=== PATIENT | female | born 1960 | race Caucasian/White ===

== ENCOUNTER 2018-09-02 06:17 | Day surgery (SDC) | payer MEDICARE, OTHER ==
[2018-08-30 15:25] VITALS: BMI 46.2
--- NOTE | 2018-09-02 15:05 | OP ---
DATE OF PROCEDURE: 09/02/2018 PROCEDURE: Colonoscopy with polypectomy. INDICATION FOR PROCEDURE: Family history of malignant neoplasm of the colon. DESCRIPTION OF PROCEDURE: After the risks and benefits of the procedure were explained to the patient including risks of bleeding, infection, perforation, reactions with anesthesia, aspiration, and/or pain, informed consent was obtained. The patient was then taken to the endoscopy suite, where a deep sedation was administered via propofol and anesthesia support. Once adequate sedation was achieved, an external rectal examination was performed followed by introduction of the standard colonoscope into the rectum and advanced to the cecum without difficulty. The quality of the prep was good with adequate visualization of the colonic mucosa. The patient tolerated the procedure well with no immediate perioperative complications. Upon conclusion of the procedure, all equipment was removed and the patient was taken to Day Stay in satisfactory condition. COLONOSCOPY FINDINGS: Digital rectal exam, medium size external hemorrhoids were seen on external examination. COLON FINDINGS: Normal-appearing mucosa was seen at the appendiceal orifice, ileocecal valve, and within in the cecum itself. Normal-appearing mucosa was also seen in the ascending colon. A 4 to 5 mm polyp was seen in the midtransverse colon and completely removed with snare cautery polypectomy. It was retrieved and placed in a specimen jar for evaluation. Another 3 to 4 mm polyp was seen in the descending colon and completely removed with snare cautery polypectomy. It was retrieved and placed in a specimen jar for evaluation. A single diverticulum was seen in the distal descending colon. Normal-appearing mucosa was seen in the sigmoid colon. However, 4 polyps measuring to 6 mm were seen in the rectum and completely removed with a combination of snare cautery polypectomy and cold snare polypectomy (the smaller 2 polyps measuring 3 mm in size were removed with cold snare). All these polyps were removed completely and placed in a specimen jar for evaluation. On retroflexion, small internal hemorrhoids were noted. IMPRESSION: 1. A 4 to 5 mm transverse colon polyp, status post snare cautery polypectomy. 2. A 3 to 4 mm descending colon polyp, status post snare cautery polypectomy. 3. Four polyps measuring to 6 mm in the rectum, status post combination of snare cautery polypectomy and cold snare polypectomy. 4. Both internal and external hemorrhoids. RECOMMENDATIONS: 1. We will follow up on the biopsy results with repeat colonoscopy, interval depending on the results. However, given her family history of colon cancer and her father with colon polyps, I would repeat in no greater than 5 years. 2. Recommend high fiber diet given the presence of hemorrhoids and diverticulosis as well as history of chronic constipation. 3. Follow up in the GI Clinic as needed. Job ID: [id number]
== END 2018-09-02 09:50 | disposition home or self-care (01) ==
LOC: SDC 06:17
PROVIDERS: ATTEND Internal Medicine
PROC: 0DBM8ZX Excision of Descending Colon, Via Natural or Artificial Opening Endoscopic, Diagnostic (ICD-10-PCS; principal; 2018-09-02)
PROC: 0DBL8ZX Excision of Transverse Colon, Via Natural or Artificial Opening Endoscopic, Diagnostic (ICD-10-PCS; 2018-09-02)
PROC: 0DBP8ZX Excision of Rectum, Via Natural or Artificial Opening Endoscopic, Diagnostic (ICD-10-PCS; 2018-09-02)
DX: Z12.11 Encounter for screening for malignant neoplasm of colon (principal); K63.5 Polyp of colon; K62.1 Rectal polyp; K57.30 Diverticulosis of large intestine without perforation or abscess without bleeding; K64.4 Residual hemorrhoidal skin tags; K64.8 Other hemorrhoids; K59.09 Other constipation; N18.9 Chronic kidney disease, unspecified; E66.01 Morbid (severe) obesity due to excess calories; Z68.42 Body mass index [BMI] 45.0-49.9, adult; Z80.0 Family history of malignant neoplasm of digestive organs; Z83.71 Family history of colonic polyps; Z87.891 Personal history of nicotine dependence; Z79.82 Long term (current) use of aspirin; Z79.899 Other long term (current) drug therapy; Z99.2 Dependence on renal dialysis
CPT/HCPCS: 88305

== ENCOUNTER 2020-02-28 11:47 | Inpatient (IN) | payer MEDICARE, OTHER ==
[2020-02-28 13:06] VITALS: BMI 40.6
[2020-02-28] MEDS ORDERED: Senokot S 8.6-50 MG TAB PO PRN (13:10)
[2020-02-28 13:57] LABS: Anion Gap 14 mmol/L (10-20); BUN (Urea Nitrogen) 38 mg/dL (9.8-20.1); CRP (Inflammatory) 11.22 mg/dL (= or < 0.5); Calc. Creatinine Clearance 16 mL/min (70-130); Calcium 8.8 mg/dL (7.8-10.44); Carbon Dioxide 30 mmol/L (22-29); Chloride 97 mmol/L (98-107); Estimated GFR-MDRD 6; Glucose 109 mg/dL (70-105); Potassium 4.9 mmol/L (3.5-5.1); Sodium 136 mmol/L (136-145)
[2020-02-28] MEDS ORDERED: Vancomycin HCl 1.5 GM in Sodium Chloride 0.9% 250 ML 300 ML IVPB SCH (17:15)
[2020-02-28] MEDS ORDERED: Vancomycin 1.5 GRAM/300 ML BAG 1.5 GM in Premix Bag 1 BAG IVPB SCH ×3 (17:30→20:00)
[2020-02-28] MEDS: cefTRIAXone\\ROCEPHIN 1 GM in Sodium Chloride 0.9% 100 ML IVPB SCH (18:23)
--- NOTE | 2020-02-28 18:23 | HP ---
CHIEF COMPLAINT: Fever and diarrhea. HISTORY OF PRESENT ILLNESS: The patient is a 59-year-old female with end-stage renal disease, on dialysis, who comes in to the hospital from dialysis for fever and diarrhea. 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 She also had some nausea, no vomiting, however, she felt that she could not keep anything orally. She states that since and Sunday, she has not been really eating or drinking very much. She went to dialysis today, and she had a fever of 101, so she was brought into the hospital. She stated that she woke up this morning, felt really hot, so she took a very cold shower, hopefully, to help her feel better. She has had diarrhea about 2 or 3 times. PAST MEDICAL HISTORY: She has chronic kidney disease and she has hypertension. 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 PAST SURGICAL HISTORY: She has had multiple surgeries to remove stones from the kidney, rotator cuff repair, fistula replacement, and tubal ligation. ALLERGIES: NONE. MEDICATIONS: As of the followin. Aspirin 81 mg daily. 2. Sensipar 25 mg daily. 3. Colace 100 mg twice a day. 4. Metoprolol 25 mg daily. 5. Zocor 40 mg at bedtime. REVIEW OF SYSTEMS: All negative except for the ones mentioned above in HPI. FAMILY HISTORY: Father had esophageal cancer. Mother had heart disease. SOCIAL HISTORY: Denies any alcohol use, drug use, or smoking history. She is a full code. Lives with a roommate. PHYSICAL EXAMINATION: VITAL SIGNS: As of the following; temperature of 98.4, pulse 64, respirations 16, saturation is 100% on 2 L, and blood pressure 162/72. GENERAL: She is awake, alert, and oriented x3. Does not appear in distress. CV: S1, S2 present. No murmurs, rubs, or gallops. LUNGS: Clear to auscultation. No rhonchi or wheezes noted. ABDOMEN: Soft and nontender. Bowel sounds are present x2. EXTREMITIES: No edema. Pedal pulses are present x2. NEUROVASCULAR: Has no focal deficits noted. SKIN: No cuts, lesions, or bruises noted. LABORATORY RESULTS: I do not have the paperwork in front of me since she was taken into the COVID room. However from the ER physician note, I was told that her CBC had some lymphopenia; however, her WBCs were normal. Her blood cultures were done. Her chemistry appeared to be relatively stable with a potassium of 4.7. She also had a CT chest, abdomen, and pelvis, indicated left flank cystic calcifications of both the kidneys, 5-mm proximal ureter stone was noted, but no hydronephrosis was noted. ASSESSMENT AND PLAN: The patient is a 59-year-old female who presents to the hospital with fever and diarrhea. 1. Fever, unclear etiology at this time. She has been having diarrhea. We will check stool studies. The patient also is going to be ruled out for COVID. The patient states that she has not been traveling anywhere. However, she does work at a fast food restaurant and has a roommate who also works. We will start her on some broad-spectrum antibiotics for now. 2. Diarrhea, could be viral versus COVID. I will rule out COVID and continue to monitor. We will check stool for Clostridium difficile. We will check a stool for leukocyte esterase and Campylobacter and Escherichia coli. 3. End-stage renal disease, on dialysis. We will consult Dr. Martin for her dialysis. 4. Lower back pain. She has been having left lower pain. She does have significant calcification noted on both her kidneys. We will continue to monitor. 5. Deep venous thrombosis prophylaxis. We will put the patient on subcu Lovenox. Job ID: [id number]
[2020-02-28] MEDS: Atorvastatin Calcium 20 MG TAB PO SCH (20:26)
[2020-02-28] MEDS ORDERED: HYDROcodone/Acetaminophen 5/325 mg Tablet PO PRN (22:09)
[2020-02-28] MEDS: HYDROcodone/Acetaminophen 5/325 mg Tablet PO PRN (23:17)
[2020-02-28] MEDS: Acetaminophen 325 MG TAB PO PRN (23:31)
[2020-02-28] MEDS ORDERED: Albuterol 200 PUFF (6.7GM INHALER) INH PRN (23:42)
[2020-02-29 05:21] LABS: ALT (SGPT) 14 U/L (8-55); AST (SGOT) 18 U/L (5-34); Albumin 3.2 g/dL (3.5-5.0); Alkaline Phosphatase 106 U/L (40-110); Anion Gap 15 mmol/L (10-20); BUN (Urea Nitrogen) 44 mg/dL (9.8-20.1); Bilirubin, Total 0.6 mg/dL (0.2-1.2); Calc. Creatinine Clearance 15 mL/min (70-130); Calcium 8.7 mg/dL (7.8-10.44); Carbon Dioxide 29 mmol/L (22-29); Chloride 96 mmol/L (98-107); Estimated GFR-MDRD 6; Globulin 2.9 g/dL (2.4-3.5); Glucose 99 mg/dL (70-105); Potassium 5.1 mmol/L (3.5-5.1); Protein, Total 6.1 g/dL (6.0-8.3); Sodium 135 mmol/L (136-145)
[2020-02-29 06:03] LABS: #Basophils 0.1 thou/uL (0.0-0.2); #Eosinphils 0.2 thou/uL (0.0-0.7); #Lymphocytes 0.8 thou/uL (1.20-3.40); #Monocytes 0.3 thou/uL (0.11-0.59); #Neutrophils 3.1 thou/uL (1.40-6.50); %Basophils 1.3 % (0.0-1.0); %Eosinophils 4.3 % (0.0-10.0); %Lymphocytes 17.2 % (21.0-51.0); %Monocytes 7.8 % (0.0-10.0); %Neutrophils 69.4 % (42.0-75.0); Hemoglobin 9.1 g/dL (12.0-16.0); Mean Corpuscular HGB CONC 33.4 g/dL (32.0-36.0); Mean Corpuscular Hemoglobin 33.7 pg (27.0-31.0); Mean Platelet Volume 8.4 fL (7.4-10.4); Platelet Count 69 thou/uL (130-400); Platelet Morphology Comment Appears Decreased; RBC Distribution Width 12.6 % (11.5-14.5); Red Blood Cell (RBC) Count 2.71 mill/uL (4.20-5.40); White Blood Cell (WBC) Count 4.4 thou/uL (4.8-10.8)
[2020-02-29] MEDS: Aspirin 81 mg Enteric Coated Tablet PO SCH (08:41)
[2020-02-29] MEDS: Magnesium Oxide 400 MG TAB PO SCH (08:41)
[2020-02-29] MEDS: Sevelamer Carbonate 800 MG TAB PO SCH ×3 (08:41→15:54)
[2020-02-29] MEDS: Cinacalcet HCl 30 MG TAB PO SCH (08:41)
[2020-02-29] MEDS: Docusate 100 MG CAP PO SCH (08:42)
[2020-02-29] MEDS ORDERED: Enoxaparin Sodium 40 MG/0.4 ML SYRINGE SC SCH (09:00)
[2020-02-29 09:14] LABS: Band 11 % (5-11); Eosinophils 3 % (0-10); Lymphocytes 17 % (21-51); MDiff Complete? YES; Monocytes 5 % (0-10); Neutrophil 64 % (42-75)
--- NOTE | 2020-02-29 09:20 | CON ---
DATE OF CONSULTATION: HISTORY OF PRESENT ILLNESS: Ms. Clark is a 59-year-old white female with ESRD - on maintenance hemodialysis and was admitted for intermittent fever. According to the patient, she has been having on and off fever. This was associated with increased urinary frequency. She went to the ER, was admitted for further management. She is being ruled out for COVID. According to the patient, she has a first COVID test, which was said to be negative. We are now being consulted for her maintenance hemodialysis. Please note, the patient this morning is complaining of mild shortness of breath, which started yesterday. Please note, she missed dialysis yesterday. REVIEW OF SYSTEMS: Intermittent fever, mild shortness of breath. No nausea. No vomiting. Positive for urinary frequency. No abdominal pain. No syncopal episode. No sore throat. Appetite and energy level are fair. No headache. No diplopia. No nausea. No vomiting. No hematochezia. No melena. No hematemesis. Occasional joint pains. MEDICATIONS: The patient is currently on; 1. Albuterol 2 puffs q.6h p.r.n. 2. Aspirin 81 mg tablet daily. 3. Atorvastatin 20 mg tablet at bedtime. 4. Ceftriaxone 1 g IV q.24 hours. 5. Sensipar 30 mg q.a.m. 6. Lovenox 40 mg subcu daily. 7. Magnesium 400 mg daily. 8. Sevelamer 800 mg p.o. t.i.d. with meals. 9. Status post vancomycin. PAST MEDICAL HISTORY: 1. Hyperlipidemia. 2. ESRD-currently on maintenance hemodialysis of Sunday, , and Sunday. 3. Status post left knee septic arthritis. 4. Status post nephrolithiasis. 5. Longstanding hypertension. 6. Status post pneumonia. PAST SURGICAL HISTORY: 1. Status post bilateral nephrostomy tube placement. 2. Status post right lung surgery. 3. Status post AV fistula placement. 4. Status post cuffed dialysis catheter placement. 5. Status post lithotripsy. 6. Status post arthrocentesis of the left knee with tube placement. SOCIAL HISTORY: The patient lives alone. She is . 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 Smoked for at least 20 years, 2 packs per day, still with occasional smoking. Status post blood transfusion. No IV drug abuse. Active lifestyle. ALLERGIES: NONE. TRAUMA: None. IMMUNIZATIONS: Up to date. HOSPITALIZATIONS: Please see past medical history. FAMILY HISTORY: No family history of ESRD. PHYSICAL EXAMINATION: VITAL SIGNS: Blood pressure 147/70, heart rate 74, respiratory rate 24, temperature 98.2, O2 saturation 96%. GENERAL: The patient is awake, alert, comfortable, not in overt distress. SKIN: Adequate turgor. HEENT: Slightly pale conjunctivae. Anicteric sclerae. No neck mass. No carotid bruits. No JVD. CHEST: No deformities. LUNGS: Decreased breath sounds. HEART: Normal sinus rhythm. No murmurs. No gallops. No rubs. ABDOMEN: Globular, soft, nontender. No masses. EXTREMITIES: Trace edema. NEUROLOGICAL: Awake, oriented to 3 spheres. Moving all extremities. No tremors. No asterixis. No ataxia. LABORATORY DATA: Laboratories of February 29, 2020; white count 4.4, hemoglobin 9.1. Sodium 135, potassium 5.1, chloride 96, carbon dioxide 29, BUN 44, creatinine 7.43, AST 18, ALT 14, albumin 3.2. ASSESSMENT AND PLAN: 1. End-stage renal disease - the patient is mildly symptomatic. She is complaining of mild shortness of breath. We will schedule her for her regular 4-hour hemodialysis today with fluid removal as tolerated. Due to the fact that she is still isolated for rule out COVID, we will shorten the dialysis to at least 3 hours. Fluid removal will be attempted. 2. Borderline anemia. We will continue to observe. 3. Rule out COVID - the patient has empiric antibiotics for presumed UTI. Overall agree with current management. Job ID: [id number]
[2020-02-29] MEDS: Acetaminophen 325 MG TAB PO PRN ×2 (09:29→20:51)
[2020-02-29] MEDS ORDERED: Vancomycin Sliding Scale 1 EACH FS ONE (11:45)
[2020-02-29] MEDS ORDERED: Vancomycin HCl 1.25 GM in Sodium Chloride 0.9% 250 ML 250 ML IVPB SCH (11:45)
[2020-02-29] MEDS ORDERED: Vancomycin 1 GM in Premix Bag 1 BAG IVPB SCH (11:45)
[2020-02-29] MEDS ORDERED: Vancomycin HCl 1.5 GM in Sodium Chloride 0.9% 250 ML 300 ML IVPB SCH (11:45)
[2020-02-29] MEDS ORDERED: HOLD VANCOMYCIN FOR LEVEL >20 FS SCH (11:45)
[2020-02-29] MEDS ORDERED: Vancomycin HCl 750 MG in Sodium Chloride 0.9% 250 ML 250 ML IVPB SCH (11:45)
[2020-02-29] MEDS ORDERED: Heparin 10,000 UNITS/ 10 ML VIAL ONE (13:50)
[2020-02-29 15:09] LABS: Vancomycin, Random 14.4 ug/mL (See Comment)
[2020-02-29 15:20] LABS: SARS-CoV-2 MS2 Positive; SARS-CoV-2 N Gene Negative; SARS-CoV-2 S Gene Negative; SARS-CoV-2 orf1ab Negative
[2020-02-29] MEDS: cefTRIAXone\\ROCEPHIN 1 GM in Sodium Chloride 0.9% 100 ML IVPB SCH (15:58)
[2020-02-29 16:36] LABS: Hep B Surf Ag Non-Reactive S/CO (NonReactive)
--- NOTE | 2020-02-29 18:10 | PDOC.HOSPP ---
- Subjective Encounter Date: 02/29/20 Encounter Time: 16:00 Subjective: pt up in bed no complains. she has had 2 bouts of diarrhea - Objective Vital Signs & Weight: Vital Signs (12 hours) Temp Pulse Resp BP Pulse Ox 02/29/20 16:15 77 16 137/74 95 02/29/20 12:10 97.6 F 82 20 142/84 H 95 02/29/20 08:20 100.3 F H 80 22 H 184/99 H 94 L 02/29/20 08:00 94 L Weight Weight 244 lb 3.2 oz I&O: 02/28/20 02/29/20 03/01/20 06:59 06:59 06:59 Intake Total 550 118 Output Total 150 Balance 550 -32 Result Diagrams: 02/29/20 04:42 02/29/20 04:42 Hospitalist ROS - Review of Systems Cardiovascular: denies: chest pain, palpitations, orthopnea, paroxysmal noc. dyspnea, edema, light headedness, other Gastrointestinal: denies: nausea, vomiting, abdominal pain, diarrhea, constipation, melena, hematochezia, other Genitourinary: denies: dysuria, frequency, incontinence, hematuria, retention, other - Medication Medications: Active Medications Generic Name Dose Route Start Last Admin Trade Name Freq PRN Reason Stop Dose Admin Acetaminophen 650 mg 02/28/20 13:10 02/29/20 09:29 Tylenol PO 650 mg Q4H PRN Administration Headache/Fever/Mild Pain (1-3) Hydrocodone Bitart/Acetaminophen 1 tab 02/28/20 22:10 02/28/20 23:17 Anthony 5/325 PO 1 tab Q12H PRN Administration Moderate Pain (4-6) Albuterol Sulfate 2 puff 02/28/20 23:42 02/29/20 00:23 Proventil Hfa INH 2 puff Q6H PRN Administration SOB &/or Wheezing Aspirin 81 mg 02/29/20 09:00 02/29/20 08:41 Ecotrin PO 81 mg DAILY CHLOE Administration Atorvastatin Calcium 20 mg 02/28/20 21:00 02/28/20 20:26 Lipitor PO 20 mg HS CHLOE Administration Cinacalcet 30 mg 02/29/20 08:00 02/29/20 08:41 Sensipar PO 30 mg QAM-WM CHLOE Administration Docusate Sodium 600 mg 02/29/20 09:00 02/29/20 08:42 Colace PO Not Given DAILY CHLOE Vancomycin HCl 1 gm/ Device 200 mls @ 200 mls/hr 02/29/20 11:45 02/29/20 15: 54 IVPB 200 mls WILLCALL CHLOE Administration Magnesium Oxide 400 mg 02/29/20 09:00 02/29/20 08:41 Magnesium Oxide PO 400 mg DAILY CHLOE Administration Metoprolol Succinate 25 mg 02/29/20 09:00 02/29/20 08:41 Toprol Xl PO 25 mg DAILY CHLOE Administration Sevelamer Carbonate 800 mg 02/29/20 08:00 02/29/20 15:54 Renvela PO 800 mg TID-WM CHLOE Administration - Exam Neck: negative: supple, symmetric, no JVD, no thyromegaly, no lymphadenopathy, no carotid bruit, JVD Heart: negative: RRR, no murmur, no gallops, no rubs, normal peripheral pulses, irregular, diminshed peripheral pulses, murmur present, II/IV, III/IV Respiratory: negative: CTAB, no wheezes, no rales, no ronchi, normal chest expansion, no tachypnea, normal percussion, rales, rhonchi, tachypneic, wheezes Hosp A/P (1) Sepsis Code(s): A41.9 - SEPSIS, UNSPECIFIED ORGANISM Status: Acute (2) Diarrhea Code(s): R19.7 - DIARRHEA, UNSPECIFIED Status: Acute (3) ESRD (end stage renal disease) Code(s): N18.6 - END STAGE RENAL DISEASE Status: Chronic (4) HTN (hypertension) Code(s): I10 - ESSENTIAL (PRIMARY) HYPERTENSION Status: Chronic Qualifiers: Hypertension type: essential hypertension Qualified Code(s): I10 - Essential (primary) hypertension - Plan pt has had no fever. will continue abx for now. covid negative. Her stool is also negative. pt is getting dialysis. possible discharge in the next 24-48 hours. she had a rapid covid test done in the outside er and was negative. we retested her. Her diarrhea has improved. urine cx was sent for the outside ER and also blood cx.
[2020-02-29] MEDS: HYDROcodone/Acetaminophen 5/325 mg Tablet PO PRN (18:36)
[2020-02-29] MEDS ORDERED: cefTRIAXone\\ROCEPHIN 1 GM in Sodium Chloride 0.9% 100 ML IVPB SCH (20:00)
[2020-02-29] MEDS: Atorvastatin Calcium 20 MG TAB PO SCH (20:52)
[2020-02-29] MEDS: metroNIDAZOLE 500 MG in Premix Bag 1 BAG IVPB SCH (22:13)
[2020-03-01] MEDS: metroNIDAZOLE 500 MG in Premix Bag 1 BAG IVPB SCH ×2 (05:44→15:51)
[2020-03-01 08:45] LABS: #Eosinphils 0.3 thou/uL (0.0-0.7); #Lymphocytes 0.8 thou/uL (1.20-3.40); #Monocytes 0.2 thou/uL (0.11-0.59); #Neutrophils 2.2 thou/uL (1.40-6.50); %Basophils 0.9 % (0.0-1.0); %Eosinophils 7.2 % (0.0-10.0); %Lymphocytes 23.5 % (21.0-51.0); %Monocytes 6.5 % (0.0-10.0); %Neutrophils 61.9 % (42.0-75.0); Hemoglobin 9.6 g/dL (12.0-16.0); Mean Corpuscular HGB CONC 33.5 g/dL (32.0-36.0); Mean Corpuscular Hemoglobin 33.7 pg (27.0-31.0); Mean Platelet Volume 8.3 fL (7.4-10.4); Platelet Count 91 thou/uL (130-400); RBC Distribution Width 12.5 % (11.5-14.5); Red Blood Cell (RBC) Count 2.86 mill/uL (4.20-5.40); White Blood Cell (WBC) Count 3.5 thou/uL (4.8-10.8)
[2020-03-01 09:00] LABS: Vancomycin, Random 17.4 ug/mL (See Comment)
[2020-03-01] MEDS ORDERED: Epoetin (ESRD) 20,000 UNITS/ML SC SCH (09:00)
[2020-03-01] MEDS ORDERED: Enoxaparin Sodium 30 MG/0.3 ML SYRINGE SC SCH (09:00)
[2020-03-01 09:01] LABS: Anion Gap 15 mmol/L (10-20); BUN (Urea Nitrogen) 27 mg/dL (9.8-20.1); Calc. Creatinine Clearance 21 mL/min (70-130); Calcium 8.6 mg/dL (7.8-10.44); Carbon Dioxide 29 mmol/L (22-29); Chloride 97 mmol/L (98-107); Estimated GFR-MDRD 9; Glucose 99 mg/dL (70-105); Potassium 4.2 mmol/L (3.5-5.1); Sodium 137 mmol/L (136-145)
[2020-03-01] MEDS: Docusate 100 MG CAP PO SCH (09:16)
[2020-03-01] MEDS: Cinacalcet HCl 30 MG TAB PO SCH (09:16)
[2020-03-01] MEDS: Aspirin 81 mg Enteric Coated Tablet PO SCH (09:16)
[2020-03-01] MEDS: Sevelamer Carbonate 800 MG TAB PO SCH ×3 (09:17→18:35)
[2020-03-01] MEDS: Magnesium Oxide 400 MG TAB PO SCH (09:17)
--- NOTE | 2020-03-01 09:30 | PRG ---
DATE OF SERVICE: SUBJECTIVE: Ms. Limon is a 59-year-old white female with ESRD-on maintenance hemodialysis, who was admitted for fever. She was ruled out for COVID. Her shortness of breath has also improved with fluid removal on dialysis. This morning, her shortness of breath is still there, but it has dramatically improved from yesterday. Our plan is to do another extra dialysis with her for at least 2 to 3 hours. She denies any associated fever today. She does complain of occasional back pain, which is chronic in nature. OBJECTIVE: VITAL SIGNS: Blood pressure 134/63, heart rate 69, respiratory rate 18, temperature 98.2, and O2 saturation 93%. GENERAL: Awake, alert, sitting comfortable, obese, not in distress. SKIN: Adequate turgor. HEENT: Slightly pale conjunctivae. Anicteric sclerae. No neck mass. No carotid bruits. No JVD. CHEST: No deformities. LUNGS: Clear breath sounds. No wheezing. No crackles. HEART: Normal sinus rhythm. No murmur. No gallops. No rubs. ABDOMEN: Globular, soft, nontender. No masses. EXTREMITIES: No edema. No deformities. MEDICATIONS: Of March 01, 2020, reviewed. LABORATORY DATA: Laboratories of March 01, 2020; white count 3.5, hemoglobin 9.6. Sodium 135, potassium 5.1, chloride 96, carbon dioxide 29, BUN 44, creatinine 7.43, glucose 99, calcium 8.7. AST 18, ALT 14, albumin 3.2. ASSESSMENT AND PLAN: 1. Shortness of breath, multifactorial etiology. Superimposed pneumonia as well as possible congestive heart failure. Clinically much improved. She ruled out for COVID. Currently, on IV antibiotics and fluid removal with dialysis. 2. End-stage renal disease-the patient has been mildly short of breath, although this has much improved. My plan is to do a short hemodialysis with this patient for fluid removal. Attempt to remove between 2 and 3 L of fluid. 3. End-stage renal disease. We will continue current hemodialysis regimen Sunday, , and Sunday. She is tolerating said treatment. 4. Anemia. Start Epogen. Job ID: [id number]
[2020-03-01] MEDS ORDERED: EPOETIN ALFA-EPBX (ESRD) 4,000 UNIT/ML VIAL SC SCH (12:00)
[2020-03-01] MEDS: Acetaminophen 325 MG TAB PO PRN (13:16)
--- NOTE | 2020-03-01 17:33 | PDOC.HOSPP ---
- Subjective Encounter Date: 03/01/20 Encounter Time: 17:30 Subjective: Ms. Clark was seen today in follow-up of diarrhea. she says this has improved. She continues to have some night sweats, and feels hot at times. - Objective Vital Signs & Weight: Vital Signs (12 hours) Temp Pulse Resp BP Pulse Ox 03/01/20 12:45 98.5 F 74 18 149/67 H 91 L 03/01/20 09:14 98.6 F 70 20 123/50 L 93 L 03/01/20 09:10 93 L Weight Weight 244 lb 3.2 oz I&O: 02/29/20 03/01/20 03/02/20 06:59 06:59 06:59 Intake Total 118 400 Output Total 150 Balance -32 400 Result Diagrams: 03/01/20 08:20 03/01/20 08:20 Hospitalist ROS - Medication Medications: Active Medications Generic Name Dose Route Start Last Admin Trade Name Freq PRN Reason Stop Dose Admin Acetaminophen 650 mg 02/28/20 13:10 03/01/20 13:16 Tylenol PO 650 mg Q4H PRN Administration Headache/Fever/Mild Pain (1-3) Hydrocodone Bitart/Acetaminophen 1 tab 02/28/20 22:10 02/29/20 18:36 Glasco 5/325 PO 1 tab Q12H PRN Administration Moderate Pain (4-6) Albuterol Sulfate 2 puff 02/28/20 23:42 02/29/20 00:23 Proventil Hfa INH 2 puff Q6H PRN Administration SOB &/or Wheezing Aspirin 81 mg 02/29/20 09:00 03/01/20 09:16 Ecotrin PO 81 mg DAILY CHLOE Administration Atorvastatin Calcium 20 mg 02/28/20 21:00 02/29/20 20:52 Lipitor PO 20 mg HS CHLOE Administration Cinacalcet 30 mg 02/29/20 08:00 03/01/20 09:16 Sensipar PO 30 mg QAM-WM CHLOE Administration Enoxaparin Sodium 30 mg 03/01/20 09:00 03/01/20 09:15 Lovenox SC 30 mg 0900 CHLOE Administration Epoetin Dino-epbx 7,500 unit 03/01/20 12:00 03/01/20 15:54 Retacrit SC 7,500 unit Q7D CHLOE Administration Vancomycin HCl 1 gm/ Device 200 mls @ 200 mls/hr 02/29/20 11:45 02/29/20 15: 54 IVPB 200 mls WILLCALL CHLOE Administration Vancomycin HCl 750 mg/ Sodium 250 mls @ 250 mls/hr 02/29/20 11:45 03/01/20 12 :56 Chloride IVPB 250 mls WILLCALL CHLOE Administration Ceftriaxone Sodium 1 gm/ 100 mls @ 200 mls/hr 02/29/20 20:00 02/29/20 20:50 Sodium Chloride IVPB 100 mls 2000 CHLOE Administration Metronidazole 500 mg/ Device 100 mls @ 100 mls/hr 02/29/20 22:00 03/01/20 15: 51 IVPB 100 mls Q8HR CHLOE Administration Magnesium Oxide 400 mg 02/29/20 09:00 03/01/20 09:17 Magnesium Oxide PO 400 mg DAILY CHLOE Administration Metoprolol Succinate 25 mg 02/29/20 09:00 03/01/20 09:16 Toprol Xl PO 25 mg DAILY CHLOE Administration Sevelamer Carbonate 800 mg 02/29/20 08:00 03/01/20 12:00 Renvela PO Not Given TID-WM CHLOE - Exam Eye: PERRL Heart: RRR, no murmur, no gallops, no rubs, normal peripheral pulses Respiratory: CTAB, no wheezes, no rales, no ronchi, normal chest expansion Gastrointestinal: soft, non-tender, non-distended, normal bowel sounds, no palpable masses Extremities: no cyanosis, no edema Hosp A/P (1) Diarrhea Code(s): R19.7 - DIARRHEA, UNSPECIFIED Status: Acute (2) ESRD (end stage renal disease) Code(s): N18.6 - END STAGE RENAL DISEASE Status: Chronic (3) HTN (hypertension) Code(s): I10 - ESSENTIAL (PRIMARY) HYPERTENSION Status: Chronic Qualifiers: Hypertension type: essential hypertension Qualified Code(s): I10 - Essential (primary) hypertension - Plan * Diarrhea- resolved * Stool studies are negative * Night sweats- recommend that she have a TB- test repeated ( at dialysis center , and continue with surveillance cultures prn. * Stable for discharhe home
[2020-03-01 18:30] VITALS: BP 131/69
[2020-03-01 18:58] VITALS: TEMP 98.5
--- NOTE | 2020-03-02 02:56 | DIS ---
DATE OF ADMISSION: 02/28/2020 DATE OF DISCHARGE: 03/01/2020 DISCHARGE DISPOSITION: Home. DISCHARGE DIAGNOSES: 1. Diarrhea and fever, likely viral gastroenteritis. 2. End-stage renal disease, on hemodialysis. 3. Hypertension. 4. History of cystinuria with frequent nephrolithiasis. DISCHARGE MEDICATIONS: Include: 1. Vitamin C, E, and zinc and copper one tablet daily. 2. Zocor 40 mg at bedtime. 3. Renvela 800 mg p.o. t.i.d. 4. Metoprolol succinate 25 mg p.o. daily. 5. Meclizine 25 mg as needed. 6. Magnesium oxide 400 mg daily. 7. Krill oil 500 mg daily. 8. Docusate sodium 100 mg daily. 9. Sensipar 25 mg daily. 10. Aspirin 81 mg a day. CODE STATUS: Full code. ALLERGIES: NO KNOWN DRUG ALLERGIES. HOSPITAL COURSE: Ms. Mary Clark is a pleasant 59-year-old female, who presented to the emergency room with complaints of diarrhea as well as fever. By the time she reached the ER, her diarrhea actually began to resolve. Stool studies were done, which were negative. She slowly improved over the course of the next couple of days. However, she did still mention that she had problems with night sweats off and on, but no significant fever. I did recommend to the patient that she should have a TB skin test either with her primary care physician or with her dialysis center, and also gave her warning signs and when to seek help should she continue to have fever. She has been instructed to follow up with her primary physician in 1 week. Job ID: [id number]
[2020-03-02] MEDS ORDERED: Docusate 100 MG CAP PO SCH (09:00)
--- NOTE | 2020-03-02 11:10 | PQF ---
CLINICAL DOCUMENTATION IMPROVEMENT CLARIFICATION FORM: ICD-10 Updated PLEASE DO AN ADDENDUM TO THE PROGRESS NOTE WITH ANY DOCUMENTATION UPDATES OR ADDITIONS AND CARRY THROUGH TO DC SUMMARY. THANK YOU. DATE: 03/02/20 ATTN: DR. CORNEJO Please exercise your independent, professional judgment in responding to the clarification form. Clinical indicators are provided on the bottom of this form for your review Please check appropriate box(s) to clarify if the following diagnosis has been ruled in or ruled out: "SEPSIS" [ ] Ruled in diagnosis [ ] Continue to treat [ ] Resolved [X ] Ruled out diagnosis [ ] Improving [ ] Cannot rule out diagnosis [ ] Other diagnosis [ ] Unable to determine In addition, please specify: Present on Admission (POA): [ ] Yes [ ] No [ ] Unable to determine For continuity of documentation, please document condition throughout progress notes and discharge summary. Thank You. CLINICAL INDICATORS - SIGNS / SYMPTOMS / LABS / RESULTS AND LOCATION IN MR PN 02/28 ([facility]): "SEPSIS" WBC 02/28: 4.4 WBC 03/01: 3.5 CRP 02/27 11.22 RR 22-34 RISKS: LIKELY VIRAL GASTROENTERITIS (DC SUMMARY) ESRD (H&P) TREATMENT: STOOL STUDIES IV ROCEPHIN (02/28-03/01) IV VANCOMYCIN (02/28-03/01) [employer] Win[employer] (This form is maintained as a part of the permanent medical record) 2014 [employer]. All Rights Reserved SMOOTH [email or web address]
== END 2020-03-01 19:14 | disposition home or self-care (01) | DRG 391 ==
LOC: 2SW 12:17 → T4-B 02-29 19:32
PROVIDERS: ADMIT Internal Medicine; ATTEND Internal Medicine
PROC: 8E0ZXY6 Isolation (ICD-10-PCS; principal; 2020-02-28)
DX: A08.4 Viral intestinal infection, unspecified (principal); N18.6 End stage renal disease; I13.0 Hypertensive heart and chronic kidney disease with heart failure and stage 1 through stage 4 chronic kidney disease, or unspecified chronic kidney disease; N39.0 Urinary tract infection, site not specified; E78.5 Hyperlipidemia, unspecified; Z20.828 Contact with and (suspected) exposure to other viral communicable diseases; D63.1 Anemia in chronic kidney disease; Z98.51 Tubal ligation status; Z99.2 Dependence on renal dialysis; Z87.891 Personal history of nicotine dependence
CPT/HCPCS: 36415; 36600; 80048; 80053; 80202; 82728; 83630; 85025; 86140; 87045; 87046; 87324; 87340; 87427; 87449; 87635; 90935; G0257; J0696; J1650; J3370; J3490; J7050; Q5105; U0003

== ENCOUNTER 2020-04-03 06:47 | Emergency (ER) | payer MEDICARE, OTHER ==
[2020-04-03] MEDS ORDERED: Lidocaine 1% w/Epinephrine 1:100K 20 ML VIAL ONE (07:28)
[2020-04-03] MEDS ORDERED: Bacitracin 1 PK ONE (07:46)
== END 2020-04-03 07:59 | disposition home or self-care (01) ==
LOC: ERS 06:47
DX: T82.838A Hemorrhage due to vascular prosthetic devices, implants and grafts, initial encounter (principal); I12.0 Hypertensive chronic kidney disease with stage 5 chronic kidney disease or end stage renal disease; N18.6 End stage renal disease; E78.5 Hyperlipidemia, unspecified; Z79.899 Other long term (current) drug therapy; Z79.84 Long term (current) use of oral hypoglycemic drugs
CPT/HCPCS: 12001

== ENCOUNTER 2020-04-10 18:35 | Inpatient (IN) | payer MEDICARE, OTHER ==
[~2020-04-10 18:35] MED LIST: Iopamidol-370 76% 500 ML 1 ML ONE
[2020-04-10] MEDS ORDERED: Vancomycin 1 GM/200 ML BAG ONE (19:12)
[2020-04-10] MEDS ORDERED: Cefepime 2 GM VIAL ONE (19:12)
[2020-04-10 19:34] LABS: #Lymphocytes 0.5 thou/uL (1.20-3.40); #Monocytes 0.4 thou/uL (0.11-0.59); #Neutrophils 5.3 thou/uL (1.40-6.50); %Basophils 0.2 % (0.0-1.0); %Eosinophils 0.6 % (0.0-10.0); %Lymphocytes 8.3 % (21.0-51.0); %Monocytes 6.4 % (0.0-10.0); %Neutrophils 84.5 % (42.0-75.0); Hemoglobin 10.9 g/dL (12.0-16.0); Mean Corpuscular HGB CONC 33.3 g/dL (32.0-36.0); Mean Corpuscular Hemoglobin 32.8 pg (27.0-31.0); Mean Corpuscular Volume 98.6 fL (78.0-98.0); Mean Platelet Volume 7.8 fL (7.4-10.4); Platelet Count 115 thou/uL (130-400); RBC Distribution Width 13.7 % (11.5-14.5); Red Blood Cell (RBC) Count 3.32 mill/uL (4.20-5.40); White Blood Cell (WBC) Count 6.3 thou/uL (4.8-10.8)
[2020-04-10] MEDS ORDERED: Ibuprofen 800 MG TAB ONE (19:37)
[2020-04-10] MEDS ORDERED: Acetaminophen 500 MG TAB ONE (19:37)
[2020-04-10 19:55] LABS: ALT (SGPT) Less than 7 U/L (8-55); AST (SGOT) 32 U/L (5-34); Alkaline Phosphatase 144 U/L (40-110); Anion Gap 19 mmol/L (10-20); BUN (Urea Nitrogen) 24 mg/dL (9.8-20.1); Bilirubin, Total 0.7 mg/dL (0.2-1.2); CK (CPK) 41 U/L (29-168); Calc. Creatinine Clearance 0 mL/min (70-130); Calcium 8.6 mg/dL (7.8-10.44); Carbon Dioxide 22 mmol/L (22-29); Chloride 98 mmol/L (98-107); Estimated GFR-MDRD 8; Globulin 3.2 g/dL (2.4-3.5); Glucose 96 mg/dL (70-105); Lipase 43 U/L (8-78); Potassium 6.2 mmol/L (3.5-5.1); Protein, Total 7.2 g/dL (6.0-8.3); Sodium 133 mmol/L (136-145)
--- NOTE | 2020-04-10 21:26 | CT ---
CTA CHEST WITH CONTRAST: 04/10/20 Axial tomograms obtained following angio protocol with multiplanar reconstructions and 3D postprocess ing. INDICATIONS: Fever, chills, shortness of breath. FINDINGS: Pulmonary arteries show adequate opacifications. No evidence of pulmonary embolus to the segmental le koby. Thoracic aorta unremarkable. Cardiomegaly with mild vascular congestion. Small pericardial effusion. Small right pleural effusion. There is right lower lobe atelectasis due to this effusion. Some subtle hazy opacities in the upper lobes with liner atelectasis seen in both upper lobes and lower lobes. N o definite infiltrate identified. The mediastinum shows mediastinal and hilar adenopathy with paratracheal lymph nodes measuring up to 2.0 cm. Images through upper abdomen unremarkable. There is evidence of a cyst from the superior left kidney which is incompletely evaluated. IMPRESSION: 1. No evidence of pulmonary embolus. 2. Cardiomegaly with mild vascular congestion. 3. Small right pleural effusion and right basilar atelectasis. 4. Small pericardial effusion. 5. Mediastinal adenopathy. 6. There is linear atelectasis in both upper lobes and both lower lobes. No definite infiltrate identified. POS: AGW
[2020-04-10] MEDS ORDERED: Dextrose 50% Abboject 50 ML SYRINGE ONE (21:41)
[2020-04-10] MEDS ORDERED: Calcium Chloride 1 GM/10 ML Abboject SYRINGE ONE (21:41)
[2020-04-10] MEDS ORDERED: Insulin Regular 300 UNITS/3 ML VIAL ONE (21:41)
[2020-04-10] MEDS ORDERED: Sodium Bicarb 50 MEQ/50 ML Abboject 8.4% SYRINGE ONE (21:41)
[2020-04-10] MEDS ORDERED: Ondansetron ODT 4 MG TAB SL PRN (23:01)
[2020-04-10] MEDS ORDERED: Ondansetron PF 4 MG/2 ML Vial IVP PRN ×2 (23:01→23:24)
[2020-04-10] MEDS ORDERED: HYDROcodone/Acetaminophen 5/325 mg Tablet PO PRN (23:24)
[2020-04-10] MEDS ORDERED: Benzonatate 100 MG CAP PO PRN (23:24)
[2020-04-10] MEDS ORDERED: hydrALAZINE 20 MG/ML VIAL SLOW IVP PRN (23:24)
[2020-04-10] MEDS ORDERED: Ondansetron ODT 4 MG TAB PO PRN (23:24)
[2020-04-10] MEDS ORDERED: Guaifenesin DM 100-10/5 ML UDCUP PO PRN (23:24)
[2020-04-10] MEDS ORDERED: Acetaminophen 500 MG TAB PO PRN (23:24)
[2020-04-10] MEDS ORDERED: HOLD VANCOMYCIN FOR LEVEL >20 FS SCH (23:45)
[2020-04-10] MEDS ORDERED: Vancomycin HCl 1.5 GM in Sodium Chloride 0.9% 250 ML 300 ML IVPB SCH (23:45)
[2020-04-10] MEDS ORDERED: Vancomycin HCl 1.25 GM in Sodium Chloride 0.9% 250 ML 250 ML IVPB SCH (23:45)
[2020-04-10] MEDS ORDERED: Vancomycin 1 GM in Premix Bag 1 BAG IVPB SCH ×2 (23:45→23:59)
[2020-04-10] MEDS ORDERED: Vancomycin HCl 750 MG in Sodium Chloride 0.9% 250 ML 250 ML IVPB SCH (23:45)
[2020-04-11 02:37] LABS: Troponin I Less than 0.010 ng/mL (< 0.028)
--- NOTE | 2020-04-11 02:43 | HP ---
PRIMARY CARE PROVIDER: Formally Dr. Rasheed, none currently. PRIMARY BEEF SPLITTER: Dr. Clifton Martin. CHIEF COMPLAINT: Shortness of breath and fever. HISTORY OF PRESENT ILLNESS: This is a 59-year-old female with a significant history of end-stage renal disease with hemodialysis on Tuesdays, , and Saturdays, status post recent left upper extremity AV fistula abscess drainage with repair on 04/07/2020 at [facility] in [place], [place]. The patient states she was having difficulty with the AV fistula with recurrent drainage and infection, referred by her plate maker to [facility], undergoing the surgery and a day stay. The patient states she was released home, but did not take any antibiotics and took several Tylenol #3's for pain. The patient noted increasing chills with some difficulty with shortness of breath and burning in her chest, which concerned her causing her to seek medical attention. The patient states she is unsure if she underwent intubation with the procedure, but assumes though at that time. The patient states she developed a fever up to 102.4 degrees Fahrenheit, and received ibuprofen and Tylenol in the emergency room. The patient also was noted with increasing respiratory distress with 93% on room air, but due to the recent procedure, was tested for COVID and ruled out. The patient did meet sepsis criteria as stated previously, receiving IV vancomycin, Levaquin, and cefepime in addition to intravenous normal saline. The patient also received treatment for hyperkalemia including calcium chloride, D50, insulin, and Kayexalate. The patient denied any other change to her chronic medication regimen and states she has been compliant. The patient states she has had the left upper extremity AV fistula for approximately 10 years with recent difficulties including drainage and bleeding from the site in addition to abscess. The patient states she underwent hemodialysis on 04/10/2020 on a regular hemodialysis session without difficulty. PAST MEDICAL HISTORY: 1. End-stage renal disease with hemodialysis. 2. Hypertension. 3. Hyperlipidemia. 4. History of left upper extremity abscess. PAST SURGICAL HISTORY: 1. Status post left AV fistula revision multiple times. 2. Status post rotator cuff repair. 3. Status post AV fistula placement 10 years prior to this evaluation. 4. Status post bilateral tubal ligation. CURRENT MEDICATIONS: 1. Metoprolol succinate 25 mg p.o. b.i.d. 2. Simvastatin 40 mg p.o. daily. 3. RenaPlex 800 mcg one tablet p.o. daily. 4. Meclizine 25 mg p.o. q.6 hours p.r.n. 5. Renvela 800 mg p.o. t.i.d. with meals. ALLERGIES: NO KNOWN DRUG ALLERGIES. FAMILY HISTORY: Positive for hypertension. SOCIAL HISTORY: Resides in [place], [place]. 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 No alcohol, tobacco, or illicit drug use. REVIEW OF SYSTEMS: CONSTITUTIONAL: Negative for weight loss or gain, ability to conduct usual activities. SKIN: Negative for rash, itching. EYES: Negative for double vision, pain. ENT/MOUTH: Negative for nose bleeding, neck stiffness, pain, tenderness. CARDIOVASCULAR: Negative for palpitations, dyspnea on exertion, orthopnea. RESPIRATORY: Negative for shortness of breath, wheezing, cough, hemoptysis, fever or night sweats. GASTROINTESTINAL: Negative for poor appetite, abdominal pain, heartburn, nausea, vomiting, constipation, or diarrhea. GENITOURINARY: Negative for urgency, frequency, dysuria, nocturia. MUSCULOSKELETAL: Negative for pain, swelling. NEUROLOGIC/PSYCHIATRIC: Negative for anxiety, depression. ALLERGY/IMMUNOLOGIC: Negative for skin rash, bleeding tendency. Otherwise negative except as stated per HPI. PHYSICAL EXAMINATION: VITAL SIGNS: On admission, blood pressure 104/52, pulse 76, respiratory rate 40, temperature 102.7 degrees Fahrenheit, O2 saturation 93% on room air. GENERAL APPEARANCE: This is a 59-year-old female, alert and oriented x3, pleasant, responsive, in no acute distress. HEENT: Pupils are equal, round, reactive to light and accommodation. Extraocular muscles are intact. No scleral icterus. No conjunctival injection. Nares are patent. OP is clear. Teeth in good repair. NECK: Supple. No cervical adenopathy. No thyromegaly. No carotid bruits. No JVD appreciated. Cervical spine with full active and passive range of motion. No meningeal signs noted. CHEST: Lungs are clear to auscultation bilaterally. CARDIOVASCULAR EXAM: S1 and S2 without noted murmur, rub, or gallop. ABDOMEN: Obese, soft, nontender, and nondistended. Bowel sounds are positive in all 4 quadrants. There is no palpable mass. No rebound or guarding appreciated. EXTREMITIES: Left upper extremity with AV fistula in place. Positive palpable thrill in the antecubital fossa. No drainage noted. No significant erythema. Postsurgical changes minimal. Distal pulses palpable at the radial artery. No lower extremity edema appreciated. Pulses palpable distally at the dorsalis pedis, posterior tibial, and popliteal arteries bilaterally. Capillary refill less than 2 seconds. NEUROLOGIC: Cranial nerves 2 through 12 are grossly intact. No focal or lateralizing signs appreciated. PERTINENT LABORATORY DATA AND X-RAY FINDINGS: Sodium 133, potassium 6.2, chloride 98, CO2 of 22, BUN 24, creatinine 5.22, estimated GFR of 80, glucose 96. Lactic acid level 1.2. Troponin I ranged between 0.018 to 0.030, BNP 191. Lipase 43. CBC showed a white blood cell count of 6.3, hemoglobin 11, hematocrit 33, MCV 99, platelet count 115 with 85% neutrophils. SARS-CoV-2 PCR not detected, 04/10/2020. CT angiogram of the chest dated 04/10/2020, showed no evidence for pulmonary embolus. Mild vascular prominence. Linear atelectasis in both upper and lower lobes. No acute infiltrate. EKG dated 04/10/2020, by my interpretation shows sinus mechanism with heart rates in the 70s. Normal R-wave progression noted in the precordial leads. Left axis deviation. No acute ST-T wave changes noted. ASSESSMENT AND PLAN: 1. Sepsis. The patient will be admitted to the telemetry unit. We will continue broad-spectrum IV antibiotic coverage with cefepime 2 g IV q.12 hours with additional vancomycin 1 g IV daily. Blood and urine cultures pending. Exact source unclear. 2. Hyperkalemia. Status post treatment with calcium chloride in addition to D50 and insulin. Serial potassium monitoring. Consult Nephrology Service for timing of next hemodialysis session. 3. End-stage renal disease with hemodialysis. We will consult Nephrology Service for continuation of maintenance hemodialysis. No current evidence to suggest acute volume overload. 4. Status post arteriovenous fistula incision and drainage. We will continue IV antibiotics as outlined previously. No current evidence to suggest acute worsening of local infection of the left upper extremity. 5. Hypertension. Resume home blood pressure regimen and monitor clinical response. 6. Prophylaxis. SCDs while in bed. Pepcid 20 mg p.o. b.i.d. 7. Code status is full. Surrogate medical decision maker is the patient's mother. Job ID: [id number]
[2020-04-11 05:22] VITALS: BMI 40.1
[2020-04-11 05:36] LABS: Anion Gap 15 mmol/L (10-20); BUN (Urea Nitrogen) 30 mg/dL (9.8-20.1); Calc. Creatinine Clearance 19 mL/min (70-130); Calcium 8.9 mg/dL (7.8-10.44); Carbon Dioxide 25 mmol/L (22-29); Chloride 98 mmol/L (98-107); Estimated GFR-MDRD 8; Glucose 95 mg/dL (70-105); Potassium 4.9 mmol/L (3.5-5.1); Sodium 133 mmol/L (136-145)
[2020-04-11 06:01] LABS: Hemoglobin 9.6 g/dL (12.0-16.0); Mean Corpuscular HGB CONC 32.6 g/dL (32.0-36.0); Mean Corpuscular Hemoglobin 32.8 pg (27.0-31.0); Mean Platelet Volume 8.5 fL (7.4-10.4); Platelet Count 82 thou/uL (130-400); RBC Distribution Width 13.9 % (11.5-14.5); Red Blood Cell (RBC) Count 2.94 mill/uL (4.20-5.40)
[2020-04-11 06:02] LABS: #Lymphocytes 0.8 thou/uL (1.20-3.40); #Monocytes 0.5 thou/uL (0.11-0.59); #Neutrophils 3.7 thou/uL (1.40-6.50); %Basophils 0.3 % (0.0-1.0); %Eosinophils 0.6 % (0.0-10.0)
[2020-04-11] MEDS ORDERED: Meclizine HCl 25 MG TAB PO PRN (08:20)
[2020-04-11] MEDS: Sevelamer Carbonate 800 MG TAB PO SCH ×3 (08:34→17:41)
[2020-04-11] MEDS: Aspirin 81 mg Enteric Coated Tablet PO SCH (08:42)
[2020-04-11] MEDS: Famotidine 20 MG TAB PO SCH (08:42)
[2020-04-11] MEDS ORDERED: Cefepime 0.5 GM, Admixture Fee 1 EACH in Sodium Chloride 0.9% 50 ML IVPB SCH (09:00)
[2020-04-11] MEDS ORDERED: Vancomycin HCl 1 GM in Sodium Chloride 0.9% 250 ML 300 ML IVPB SCH (09:00)
[2020-04-11] MEDS: Cinacalcet HCl 30 MG TAB PO SCH (09:19)
[2020-04-11] MEDS: Docusate 100 MG CAP PO SCH (09:19)
--- NOTE | 2020-04-11 12:44 | CON ---
DATE OF CONSULTATION: HISTORY OF PRESENT ILLNESS: Ms. Clark is a 59-year-old white female with ESRD and was admitted due to mild shortness of breath and fever. She was also found to be mildly hyperkalemic, at that time was given said medications to lower the potassium. In addition, the patient has received empiric IV antibiotics. A CT scan of the chest was said to have been done on April 10, 2020, and it did not show any evidence of pulmonary embolus. There was a cardiomegaly with mild vascular congestion and a small pericardial effusion. There was also finding of a small right pleural effusion. We are being consulted for management of her ESRD as well as for the volume overload. REVIEW OF SYSTEMS: Positive for pleuritic chest pain. Positive for mild shortness of breath. Positive for fever and chills. No diarrhea. No constipation. No productive cough. No dysuria. No hematochezia. No melena. No hematemesis. No headache. No diplopia. No sore throat. Appetite and energy level are decreased. MEDICATIONS: The patient is currently on vancomycin sliding scale, sevelamer 800 mg p.o. t.i.d. with meals, metoprolol succinate 25 mg once a day, Krill oil one tablet daily, hydrocodone one tab p.r.n. She has also been treated empirically with cefepime at 0.5 g IV daily. PAST MEDICAL HISTORY: 1. ESRD - currently on maintenance hemodialysis Sunday, , and Sunday. 2. Chronic obstructive pulmonary disease. 3. Hyperlipidemia. 4. Status post nephrolithiasis. 5. Longstanding hypertension. 6. Status post pneumonia. 7. Status post left knee septic arthritis. PAST SURGICAL HISTORY: Status post AV fistula placement with revision, status post bilateral nephrostomy with tube placement, status post right lung surgery, status post AV fistula placement, status post cuffed dialysis catheter placement, status post lithotripsy, and status post arthrocentesis of the left knee with tube placement. SOCIAL HISTORY: The patient is , lives in [place]. She lives alone. 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 Smoked for at least 20 years, 2 packs a day. Still with occasional smoking. Status post blood transfusion. No IV drug abuse. ALLERGIES: NONE. TRAUMA: None. IMMUNIZATIONS: Up-to-date. HOSPITALIZATIONS: Please see past medical history. FAMILY HISTORY: No family history of ESRD. PHYSICAL EXAMINATION: VITAL SIGNS: Blood pressure 117/63, heart rate 62, respiratory rate 16, temperature 97.9, and O2 saturation 99% on room air. GENERAL: The patient is awake, alert, supine, obese, comfortable, not in distress. SKIN: Adequate turgor. HEENT: She has slightly pale conjunctivae. Anicteric sclerae. NECK: No neck mass. No carotid bruits. No JVD. CHEST: No deformities. LUNGS: Clear breath sounds. No wheezing. No crackles. HEART: Normal sinus rhythm. No murmur. No gallops. No rubs. ABDOMEN: Globular, soft, and nontender. EXTREMITIES: No edema. No deformities. LABORATORY DATA: Laboratories of April 11, 2020 white count 5, hemoglobin 9.6. Sodium 133, potassium 4.9, chloride 98, carbon dioxide 25, BUN 30, creatinine 5.68, and calcium 8.9. White count 5, hemoglobin 9.6. IMAGING DATA: CT scan of the chest shows no pulmonary embolus. ASSESSMENT AND PLAN: 1. Fever and chills - being empirically treated with IV antibiotics, status post vancomycin and currently on cefepime. Blood culture is still pending. 2. End-stage renal disease - the patient will undergo a 2-hour hemodialysis today. She did receive contrast and has some degree of mild volume overload. For that reason, we will do the extra dialysis today. Fluid removal as tolerated. 3. Anemia. We will continue Epogen at outpatient clinic. Overall, agree with current management. Job ID: [id number]
--- NOTE | 2020-04-11 14:49 | PDOC.HOSPP ---
- Subjective Encounter Date: 04/11/20 Encounter Time: 09:00 Subjective: no overnight events. this morning, feeling and breathing better. has no complaints. - Objective Vital Signs & Weight: Vital Signs (12 hours) Temp Pulse Resp BP Pulse Ox 04/11/20 11:44 97.8 F 64 16 126/68 97 04/11/20 08:00 99 04/11/20 07:30 97.9 F 62 16 117/63 99 04/11/20 03:30 97.6 F 56 L 20 110/55 L 96 Weight Weight 241 lb 4.8 oz Result Diagrams: 04/11/20 04:50 04/11/20 04:50 Hospitalist ROS - Review of Systems Constitutional: denies: fever, chills, sweats Respiratory: denies: cough, dry, shortness of breath Gastrointestinal: denies: nausea, vomiting Genitourinary: denies: dysuria, frequency, incontinence, hematuria Skin: denies: rash - Medication Medications: Active Medications Generic Name Dose Route Start Last Admin Trade Name Freq PRN Reason Stop Dose Admin Aspirin 81 mg 04/11/20 09:00 04/11/20 08:42 Ecotrin PO 81 mg DAILY CHLOE Administration Cinacalcet 30 mg 04/11/20 09:00 04/11/20 09:19 Sensipar PO 30 mg DAILY CHLOE Administration Docusate Sodium 100 mg 04/11/20 09:00 04/11/20 09:19 Colace PO 100 mg DAILY CHLOE Administration Famotidine 20 mg 04/11/20 09:00 04/11/20 08:42 Pepcid PO 20 mg DAILY CHLOE Administration Cefepime HCl 0.5 gm/ 50 mls @ 100 mls/hr 04/11/20 09:00 04/11/20 09:20 Miscellaneous Medication 1 IVPB 50 mls each/ Sodium Chloride 0900 CHLOE Administration Metoprolol Succinate 25 mg 04/11/20 09:00 04/11/20 08:42 Toprol Xl PO 25 mg DAILY CHLOE Administration Sevelamer Carbonate 800 mg 04/11/20 08:00 04/11/20 11:39 Renvela PO 800 mg TID-WM CHLOE Administration - Exam General Appearance: NAD, awake alert Neck: no JVD Heart: RRR, no murmur, no gallops, no rubs Respiratory: CTAB, no wheezes, no rales, no ronchi Gastrointestinal: soft, non-tender, non-distended, normal bowel sounds Extremities: no edema Psychiatric: normal affect, normal behavior, A&O x 3 Hosp A/P - Plan CAP/pneumonitis patient had fistula repair 04/07, after which developed shortness of breath, coughing, and pleuritic pain likely community acquired pneumonia or aspiration pneumonitis -deescalate antibiotics to ceftriaxone and doxycycline -viral and bacterial respiratory culture #ESRD -nephrology onboard [facility]: 2 nights
[2020-04-11 15:07] LABS: HBSAg Index 0.17 S/CO (0-0.99); Hep B Surf Ag Non-Reactive S/CO (NonReactive)
[2020-04-11] MEDS: cefTRIAXone\\ROCEPHIN 1 GM in Sodium Chloride 0.9% 100 ML IVPB SCH (16:34)
[2020-04-11 17:37] LABS: Bilirubin Negative (Negative); Blood, Urine Trace (Negative); Clarity Turbid (Clear); Glucose, Urine (Dipstick) Normal (Negative); Ketone, Urine Negative (Negative); Leukocyte 500 Leu/uL (Negative); Nitrite Negative (Negative); Protein, Urine (Dipstick) 300 mg/dL (Neg-Trace); Specific Gravity, Urine 1.021 (1.002-1.036); Urobilinogen Normal mg/dL (Less than 2); WBC/HPF Greater than 50 HPF (0-3)
[2020-04-11 17:50] LABS: Legionella Urinary Ag Negative (Negative); Strep pneumo Urine Ag NEGATIVE (NEGATIVE)
[2020-04-11 17:56] LABS: Bacteria/HPF 2+ HPF (None Seen); Urine Culture Reflex No No
[2020-04-11] MEDS: Atorvastatin Calcium 20 MG TAB PO SCH (21:33)
[2020-04-12 05:24] LABS: #Eosinphils 0.1 thou/uL (0.0-0.7); #Lymphocytes 0.8 thou/uL (1.20-3.40); #Monocytes 0.3 thou/uL (0.11-0.59); #Neutrophils 2.2 thou/uL (1.40-6.50); %Basophils 0.3 % (0.0-1.0); %Monocytes 9.6 % (0.0-10.0); %Neutrophils 63.1 % (42.0-75.0); Hemoglobin 9.4 g/dL (12.0-16.0); Mean Corpuscular HGB CONC 33.1 g/dL (32.0-36.0); Mean Corpuscular Hemoglobin 33.4 pg (27.0-31.0); Mean Platelet Volume 8.5 fL (7.4-10.4); Platelet Count 69 thou/uL (130-400); RBC Distribution Width 13.5 % (11.5-14.5); White Blood Cell (WBC) Count 3.5 thou/uL (4.8-10.8)
[2020-04-12 05:54] LABS: Anion Gap 16 mmol/L (10-20); BUN (Urea Nitrogen) 28 mg/dL (9.8-20.1); Calc. Creatinine Clearance 19 mL/min (70-130); Calcium 8.8 mg/dL (7.8-10.44); Carbon Dioxide 25 mmol/L (22-29); Chloride 100 mmol/L (98-107); Estimated GFR-MDRD 8; Glucose 88 mg/dL (70-105); Potassium 4.9 mmol/L (3.5-5.1); Sodium 136 mmol/L (136-145)
--- NOTE | 2020-04-12 08:44 | PRG ---
DATE OF SERVICE: 04/12/2020 SUBJECTIVE: Ms. Clark is a 59-year-old white female with ESRD and admitted for chest pain/shortness of breath. She was found to have pneumonia and is currently undergoing treatment for it with IV antibiotics. A CT angio was also done to rule out pulmonary embolism. She is still complaining of mild shortness of breath with pleuritic chest pain. She did undergo a short dialysis yesterday due to the contrast received the day before. OBJECTIVE: VITAL SIGNS: Blood pressure is 136/68, heart rate 61, respiratory rate 16, temperature 98.6, and O2 saturation 93%. GENERAL: The patient is awake, obese, supine, comfortable, not in distress. SKIN: Adequate turgor. HEENT: She has a slightly pale conjunctivae. Anicteric sclerae. NECK: No neck mass. No carotid bruits. No JVD. CHEST: No deformities. LUNGS: Clear breath sounds. No wheezing. No crackles. HEART: Normal sinus rhythm. No murmur. No gallops. No rubs. ABDOMEN: Globular, soft, and nontender. No masses. EXTREMITIES: No edema. No deformities. MEDICATIONS: Medications of April 12, 2020, reviewed. LABORATORY DATA: Laboratories on April 12, 2020; white count 3.5, hemoglobin 9.4, hematocrit 28.3. Sodium 136, potassium 4.9, chloride 100, carbon dioxide 25, BUN 28, creatinine 5.69, glucose 88, and calcium 8.8. ASSESSMENT AND PLAN: 1. Pneumonia, on IV antibiotics. Continue supportive care and the chest pain may be related to a pleuritic chest pain. Please note, she has been ruled out for pulmonary embolism. 2. End-stage renal disease, stable. We will continue current Sunday, , and Sunday hemodialysis regimen. Again, fluid removal as tolerated. No indication for any emergent hemodialysis today. Recheck basic met and CBC in a.m. Job ID: [id number]
[2020-04-12] MEDS: Sevelamer Carbonate 800 MG TAB PO SCH ×3 (08:46→19:29)
[2020-04-12] MEDS: Magnesium Oxide 400 MG TAB PO SCH (08:46)
[2020-04-12] MEDS: Docusate 100 MG CAP PO SCH (08:46)
[2020-04-12] MEDS: Multivitamin W/ Minerals 1 TAB PO SCH (08:46)
[2020-04-12] MEDS: Cinacalcet HCl 30 MG TAB PO SCH (08:46)
[2020-04-12] MEDS: Aspirin 81 mg Enteric Coated Tablet PO SCH (08:46)
[2020-04-12] MEDS: Famotidine 20 MG TAB PO SCH (08:48)
[2020-04-12] MEDS: cefTRIAXone\\ROCEPHIN 1 GM in Sodium Chloride 0.9% 100 ML IVPB SCH (16:01)
--- NOTE | 2020-04-12 18:18 | PDOC.HOSPP ---
- Subjective Encounter Date: 04/12/20 Encounter Time: 09:00 Subjective: no overnight events. this morning, feeling and breathing better, though shortness of breath especially on exertion persists. otherwise no complaints. - Objective Vital Signs & Weight: Vital Signs (12 hours) Temp Pulse Resp BP Pulse Ox 04/12/20 16:00 97.6 F 58 L 16 118/61 99 04/12/20 11:42 97.7 F 56 L 16 108/56 L 98 04/12/20 08:45 93 L 04/12/20 07:44 98.6 F 61 16 136/68 93 L Weight Weight 241 lb 4.8 oz I&O: 04/11/20 04/12/20 04/13/20 06:59 06:59 06:59 Intake Total 810 Output Total 150 Balance 660 Result Diagrams: 04/12/20 05:06 04/12/20 05:06 Hospitalist ROS - Review of Systems Constitutional: denies: fever, chills, sweats Respiratory: reports: cough, dry, shortness of breath, SOB with excertion, pleuritic pain Cardiovascular: reports: orthopnea, edema. denies: chest pain, palpitations Gastrointestinal: denies: nausea, vomiting, abdominal pain, diarrhea, constipation Genitourinary: denies: dysuria, incontinence, hematuria - Medication Medications: Active Medications Generic Name Dose Route Start Last Admin Trade Name Freq PRN Reason Stop Dose Admin Acetaminophen 1,000 mg 04/10/20 23:24 04/12/20 08:55 Tylenol PO 1,000 mg Q6H PRN Administration Mild Pain (1-3) Aspirin 81 mg 04/11/20 09:00 04/12/20 08:46 Ecotrin PO 81 mg DAILY CHLOE Administration Atorvastatin Calcium 20 mg 04/11/20 21:00 04/11/20 21:33 Lipitor PO 20 mg HS CHLOE Administration Cinacalcet 30 mg 04/11/20 09:00 04/12/20 08:46 Sensipar PO 30 mg DAILY CHLOE Administration Docusate Sodium 100 mg 04/11/20 09:00 04/12/20 08:46 Colace PO 100 mg DAILY CHLOE Administration Famotidine 20 mg 04/11/20 09:00 04/12/20 08:48 Pepcid PO 20 mg DAILY CHLOE Administration Ceftriaxone Sodium 1 gm/ 100 mls @ 200 mls/hr 04/11/20 15:00 04/12/20 16:01 Sodium Chloride IVPB 100 mls 1500 CHLOE Administration Doxycycline Hyclate 100 mg/ 100 mls @ 100 mls/hr 04/12/20 08:00 04/12/20 08: 48 Sodium Chloride IVPB 100 mls 0800,2000 CHLOE Administration Iron/Minerals/Multivitamins 1 tab 04/12/20 09:00 04/12/20 08:46 Theragran M PO 1 tab DAILY CHLOE Administration Magnesium Oxide 400 mg 04/12/20 09:00 04/12/20 08:46 Magnesium Oxide PO 400 mg DAILY CHLOE Administration Metoprolol Succinate 25 mg 04/11/20 09:00 04/12/20 08:46 Toprol Xl PO 25 mg DAILY CHLOE Administration Sevelamer Carbonate 800 mg 04/11/20 08:00 04/12/20 13:16 Renvela PO 800 mg TID-WM CHLOE Administration - Exam General Appearance: NAD, awake alert Neck: no JVD Heart: RRR, no murmur, no gallops, no rubs Respiratory: CTAB, no wheezes, no ronchi Respiratory - other findings: bibasilar inspiratory rales Gastrointestinal: soft, non-tender, non-distended, normal bowel sounds Extremities: 1+ LE edema Extremities - other findings: bilateral pitting equal Psychiatric: normal affect, normal behavior, A&O x 3 Hosp A/P - Plan CAP/pneumonitis clinically improving; infectious workup NTD -continue ceftriaxone and doxycycline #ESRD -nephrology onboard [facility]: 1 night
[2020-04-12] MEDS: Atorvastatin Calcium 20 MG TAB PO SCH (21:34)
[2020-04-13 05:23] LABS: #Eosinphils 0.2 thou/uL (0.0-0.7); #Lymphocytes 0.9 thou/uL (1.20-3.40); #Monocytes 0.3 thou/uL (0.11-0.59); #Neutrophils 2.3 thou/uL (1.40-6.50); %Basophils 1.1 % (0.0-1.0); %Eosinophils 4.9 % (0.0-10.0); %Lymphocytes 24.8 % (21.0-51.0); %Neutrophils 60.3 % (42.0-75.0); Hemoglobin 9.2 g/dL (12.0-16.0); Mean Corpuscular HGB CONC 34.5 g/dL (32.0-36.0); Mean Corpuscular Hemoglobin 34.6 pg (27.0-31.0); Mean Platelet Volume 8.9 fL (7.4-10.4); Platelet Count 91 thou/uL (130-400); RBC Distribution Width 13.6 % (11.5-14.5); Red Blood Cell (RBC) Count 2.66 mill/uL (4.20-5.40); White Blood Cell (WBC) Count 3.8 thou/uL (4.8-10.8)
[2020-04-13 05:46] LABS: Anion Gap 14 mmol/L (10-20); BUN (Urea Nitrogen) 41 mg/dL (9.8-20.1); Calc. Creatinine Clearance 14 mL/min (70-130); Calcium 8.7 mg/dL (7.8-10.44); Carbon Dioxide 28 mmol/L (22-29); Chloride 99 mmol/L (98-107); Estimated GFR-MDRD 6; Glucose 89 mg/dL (70-105); Potassium 5.6 mmol/L (3.5-5.1); Sodium 135 mmol/L (136-145)
[2020-04-13] MEDS: KRILL OIL 500 MG PO SCH ×2 (07:29→07:30)
[2020-04-13] MEDS: Cinacalcet HCl 30 MG TAB PO SCH (08:34)
[2020-04-13] MEDS: Famotidine 20 MG TAB PO SCH (08:34)
[2020-04-13] MEDS: Sevelamer Carbonate 800 MG TAB PO SCH ×2 (08:34→14:30)
[2020-04-13] MEDS: Docusate 100 MG CAP PO SCH (08:34)
[2020-04-13] MEDS: Aspirin 81 mg Enteric Coated Tablet PO SCH (08:34)
[2020-04-13] MEDS: Magnesium Oxide 400 MG TAB PO SCH (08:34)
[2020-04-13] MEDS: Multivitamin W/ Minerals 1 TAB PO SCH (08:35)
[2020-04-13] MEDS ORDERED: Vit A,C & E/Lutein/Minerals Tablet PO SCH (09:00)
[2020-04-13 13:30] VITALS: BP 115/56; TEMP 97.8
--- NOTE | 2020-04-13 19:57 | PRG ---
DATE OF SERVICE: 04/13/2020 SUBJECTIVE: Ms. Clark is a 59-year-old white female with ESRD and followed up by the Renal Service for her management of her ESRD and maintenance hemodialysis. The patient came in with shortness of breath and was diagnosed to have pneumonia/bronchitis. She was empirically treated with IV antibiotics. She was also ruled out for pulmonary embolism. Due to the contrast she received, she received an extra hemodialysis last Sunday. This morning, she is feeling better. Denies any new complaints. She does make mention of pleuritic chest pain. OBJECTIVE: VITAL SIGNS: Blood pressure is 115/56, heart rate is 54, respiratory rate is 16, temperature 97.8, O2 saturation is 96%. GENERAL: Noted to be awake, alert, comfortable, obese, not in distress. SKIN: Adequate turgor. HEENT: Pinkish conjunctivae. Anicteric sclerae. NECK: No neck mass. No carotid bruits. No JVD. CHEST: No deformities. LUNGS: Clear breath sounds. No wheezing. No crackles. HEART: Normal sinus rhythm. No murmur. No gallops. No rubs. ABDOMEN: Globular, soft, nontender. No masses. EXTREMITIES: No edema. No deformities. MEDICATIONS: Medications of April 13, 2020, were reviewed. LABORATORY DATA: Laboratories of April 13, 2020: White count 3.8, hemoglobin 9.2. Sodium 135, potassium 5.6, chloride 99, carbon dioxide 28, BUN 41, creatinine 7.48, glucose 89, calcium 8.7. ASSESSMENT AND PLAN: 1. End-stage renal disease, stable. We will continue current Sunday, , and Sunday hemodialysis regimen with this patient. Again, fluid removal only as tolerated. 2. Pneumonia/bronchitis - on empiric antibiotics. Continue current management. 3. Anemia - most recent hemoglobin is 9.2. We will continue Epogen regimen with this patient in the outpatient setting. 4. Overall, agree with current management. Job ID: [id number]
--- NOTE | 2020-04-14 05:50 | PQF ---
Dear : Mike Summers Date : 04/14 Please exercise your independent, professional judgment in responding to the clarification form. Clinical indicators are provided on the bottom of this form for your review Can you please further clarify if Sepsis is ruled in or ruled out? Sepsis [ ] Ruled in diagnosis [ ] Continue to treat [ ] Resolved [ ] Ruled out diagnosis [ ] Improving [ ] Cannot rule out diagnosis [ ] Other diagnosis [x ] Unable to determine Physician Signature: Date/Time: For continuity of documentation, please document condition throughout progress notes and discharge summary. Thank You. To be completed by CDI/Coding staff for physician review: Present Clinical Indicators - Signs / Symptoms / Labs Results and Location in Medical Record [ x ] ROS: Positive Fever, chills ED Provide pg.1 [ x ] VS: BP 104/54, RR 40, Pulse 76, Temp 102.7 ED Provide pg.2 [ x ] Sepsis ED Provider pg.3 [ x ] Sepsis , exact source unclear H and P pg.2 [ x ] Pneumonia/bronchitis PN 04/13 [ x ] WBC 6.3, 5.0, 3.5L, 3.8L Laboratory [ x ] Lactic acid 1.2, 1.8 Laboratory [ x ] Chest Xray: Some subtle hazy opacities in the upper lobes Chest Xray [ x ] Blood culture:no growth at 48 hrs Collected 04/10 Present Risk Factors Results and Location in Medical Record [ x ] CAP/Pneumonitis Hospitalist 04/12 pg.4 [ x ] ESRD H and P pg.1 [ x ] HTN H and P pg.1 [ x ] HLD H and P pg.1 [ x ] History of left upper extremity abscess H and P pg.1 [ x ] Obesity PN 04/12 Present Treatments Results and Location in Medical Record [ x ] Chest/ Thorax CTA Chest/ Thorax CTA folder 04/10 [ x ] IV Fluids NOV 28 [ x ] Vancomycin 1gm IV NOV 28 [ x ] Cefepime 2gm IV NOV 28 [ x ] Levaquin 750mg IV NOV 28 [ x ] Vibramycin 100mg IV NOV 28 [ x ] Blood culture Collected 04/10 CDS/Marketing Services Rep Signature: Heladio Cruz Phone #: ext [phone] Date: 04/14/20 This is a permanent part of the Medical Record [facility]
--- NOTE | 2020-04-14 08:00 | DIS ---
DATE OF ADMISSION: 04/10/2020 DATE OF DISCHARGE: 04/13/2020 HOSPITAL COURSE: Ms. Limon is a 59-year-old female with a medical history of end-stage renal disease, status post recent AV fistula, abscess drainage and repair, who presented with acute shortness of breath and fever. She was diagnosed with community-acquired pneumonia and responded promptly to antibiotics. She was discharged to complete a total of 5 days of antibiotics based on her prompt response and clinical criteria. PHYSICAL EXAMINATION: VITAL SIGNS: Blood pressure 115/56, pulse 54, temperature 97.8, respiratory rate 16, and oxygen saturation 96% on room air. GENERAL: Lying comfortably in bed. Awake and alert. Morbidly obese. HEENT: No JVD. HEART: Regular rate and rhythm. No murmurs, gallops, or rubs. RESPIRATORY: Mild bibasilar inspiratory rales. Clear to auscultation bilaterally. No wheezing or rhonchi. GI: Soft, nontender, nondistended. Normal bowel sounds. EXTREMITIES: +1 lower extremity edema, pitting, equal. PSYCHIATRIC: Proper mood and affect. Alert and oriented x3. MEDICATION LIST: New medications: Levofloxacin 750 mg p.o. daily for three more days. Continued medications: 1. Renvela. 2. Meclizine. 3. Metoprolol succinate. 4. Cinacalcet. 5. RenaPlex-D tablet. 6. Krill oil. 7. Aspirin. 8. Simvastatin. 9. Magnesium oxide. 10. Docusate. 11. PreserVision AREDS. Job ID: [id number]
--- NOTE | 2020-04-14 08:02 | DIS ---
DATE OF ADMISSION: 04/10/2020 DATE OF DISCHARGE: 04/13/2020 HOSPITAL COURSE: Ms. Clark is a 59-year-old female with medical history of end-stage renal disease on hemodialysis, status post recent left upper extremity AV fistula abscess drainage with repair, who presented with acute shortness of breath and fever. She was diagnosed with community-acquired pneumonia. The patient started on ceftriaxone and azithromycin, improved promptly. She was discharged hemodynamically stable on three day regimen of levofloxacin for completion of treatment of community-acquired pneumonia based on clinical discharge criteria. PHYSICAL EXAMINATION: VITAL SIGNS: Blood pressure 115/56, pulse 54, respiratory rate 16, oxygen saturation 96% on room air, and temperature 97.8. GENERAL APPEARANCE: Lying comfortably in bed. Alert. Morbidly obese. HEENT: Normocephalic and atraumatic. PERRL. EOMI. CARDIAC: Regular rate and rhythm. No murmurs, gallops, or rubs. LUNGS: Clear to auscultation bilaterally. No wheezing. No rhonchi. Mild bibasilar inspiratory rales. ABDOMEN: Soft, nontender, and nondistended. Normal bowel sounds. EXTREMITIES: +1 bilateral equal pitting edema up to mid tibial level. MEDICATION LIST: New medication: Levofloxacin 750 mg p.o. daily for three more days. Modified medications: No modified medications. Discontinued medications: No discontinued medications. Continued medications: 1. Aspirin. 2. Multivitamin. 3. Cinacalcet. 4. Docusate. 5. Magnesium oxide. 6. Meclizine. 7. Metoprolol succinate. 8. Sevelamer. 9. Simvastatin. Job ID: [id number]
--- NOTE | 2020-04-15 23:53 | PQF ---
Dear : Mike Summers Date: 04/15/20 Please exercise your independent, professional judgment in responding to the clarification form. Clinical indicators are provided on the bottom of this form for your review Can you please further clarify the specificity of Pneumonia? Please check appropriate box(es): [ ] Aspiration Pneumonia [ ] Empirically treating Gram Negative Pneumonia [ ] Pneumonia secondary to (specify organism / underlying disease) [ x ] Simple Pneumonia [ ] Pneumonia of unknown etiology [ ] Other diagnosis please specify [ ] Unable to determine Physician Signature: Date/Time: For continuity of documentation, please document condition throughout progress notes and discharge summary. Thank You. To be completed by CDI/Coding staff for physician review: Present Clinical Indicators - Signs / Symptoms / Labs Results and Location in Medical Record [ x ] ROS: Positive Fever, chills ED Provide pg.1 [ x ] Likely community acquired pneumonia or aspiration pneumonia Hospitalist PN 04/11 pg.3 [ x ] She was diagnosed with community acquired pneumonia DS pg.1 [ x ] Pneumonia/bronchitis PN 04/13 [ x ] WBC 6.3, 5.0, 3.5L, 3.8L Laboratory [ x ] Chest Xray: Some subtle hazy opacities in the upper lobes Chest Xray [ x ] Blood culture: no growth at 48 hrs Collected 04/10 Present Risk Factors Results and Location in Medical Record [ x ] ESRD H and P pg.1 [ x ] HTN H and P pg.1 [ x ] HLD H and P pg.1 [ x ] History of left upper extremity abscess H and P pg.1 [ x ] Obesity PN 04/12 Present Treatments Results and Location in Medical Record [ x ] Chest/ Thorax CTA Chest/ Thorax CTA folder 04/10 [ x ] IV Fluids NOV 28 [ x ] Vancomycin 1gm IV NOV 28 [ x ] Cefepime 2gm IV NOV 28 [ x ] Levaquin 750mg IV NOV 28 [ x ] Vibramycin 100mg IV NOV 28 [ x ] Blood culture Collected 04/10 CDS/Special Investigator Signature: Heladio Cruz Phone #: [phone] Date: 04/15/20 This is a permanent part of the Medical Record [facility]
== END 2020-04-13 15:04 | disposition home or self-care (01) | DRG 193 ==
LOC: ERS 18:35 → 2SE 22:00
PROVIDERS: ADMIT Family Medicine; ATTEND Family Medicine
PROC: 5A1D70Z Performance of Urinary Filtration, Intermittent, Less than 6 Hours Per Day (ICD-10-PCS; principal; 2020-04-10)
DX: J18.9 Pneumonia, unspecified organism (principal); N18.6 End stage renal disease; I12.0 Hypertensive chronic kidney disease with stage 5 chronic kidney disease or end stage renal disease; E78.5 Hyperlipidemia, unspecified; E87.70 Fluid overload, unspecified; D63.1 Anemia in chronic kidney disease; Z98.51 Tubal ligation status; Z79.899 Other long term (current) drug therapy; Z99.2 Dependence on renal dialysis
CPT/HCPCS: 36415; 71275; 80048; 80053; 81001; 82550; 83605; 83690; 83880; 84484; 85025; 87040; 87340; 87449; 87633; 87899; 90935; 93005; 96361; 96365; 96366; 96368; 96375; G0257; J0692; J0696; J1815; J1956; J3370; J3490; Q9967; U0002